=== PATIENT | female | born 1945 | race Caucasian/White ===

== ENCOUNTER 2019-08-15 18:51 | Inpatient (IN) ==
[2019-08-15] MEDS ORDERED: Naloxone 0.4 MG/ML INJ IVP PRN (21:17)
[2019-08-15] MEDS ORDERED: *HR* Promethazine 25 MG/ML VIAL IVP PRN (21:17)
[2019-08-15 22:28] LABS: INR 3.2; Prothrombin Time 35.9 Seconds (9.4-12.1)
[2019-08-15] MEDS: Insulin LISPRO 300 UNITS/3 ML VIAL SQ SCH (22:33)
[2019-08-15 22:52] LABS: Magnesium 1.8 mg/dL (1.6-2.6); Phosphorous 2.6 mg/dL (2.7-4.5); Troponin I 0.05 ng/mL (< 0.04)
[2019-08-15 22:58] LABS: Thyroid Stimulating Hormone 6.911 mcIU/mL (0.340-5.600)
[2019-08-16] MEDS ORDERED: Furosemide 40 MG/4 ML VIAL IVP ONE (00:53)
[2019-08-16] MEDS ORDERED: *HR* Metoprolol 5 MG/5 ML VIAL IVP PRN (01:58)
[2019-08-16 02:40] LABS: Basophils # 0.1 K/mcL (0.0-0.2); Eosinophils # 0.1 K/mcL (0.0-0.6); Eosinophils % 1.4 %; Hematocrit 37.4 % (35.3-44.9); Hemoglobin 11.8 g/dL (11.5-15.4); Immature Granulocytes % 0.8 % (0-4); Lymphocytes # 0.5 K/mcL (0.6-4.6); Lymphocytes % 9.8 %; Mean Corpuscular HGB Conc 31.6 g/dL (31.6-35.5); Mean Corpuscular Hemoglobin 31.2 pg (28.0-33.3); Mean Corpuscular Volume 98.9 fL (83.0-100.0); Mean Platelet Volume 10.4 fL (9.4-12.4); Monocytes # 0.5 K/mcL (0.0-1.3); Neutrophils # 3.9 K/mcL (1.6-8.9); Platelet Count 222 K/mcL (140-400); Red Blood Count 3.78 M/mcL (3.82-4.97); Red Cell Distribution Width 16.5 % (11.5-14.5); White Blood Count 5.1 K/mcL (4.3-11.1)
[2019-08-16 03:03] LABS: Albumin 3.2 g/dL (3.5-5.7); Albumin/Globulin Ratio 1.1 (1.1-2.2); Bilirubin,Total 1.1 mg/dL (0.3-1.0); Calcium 8.8 mg/dL (8.6-10.3); Potassium 3.6 mEq/L (3.5-5.1); Potassium 3.8 mEq/L (3.5-5.1); Total Protein 6.2 g/dL (6.4-8.9)
[2019-08-16 03:18] LABS: Triiodothyronine (T3) Free 2.15 pg/mL (2.50-3.90)
[2019-08-16 05:03] LABS: INR 3.2; Prothrombin Time 35.9 Seconds (9.4-12.1)
[2019-08-16 08:18] LABS: Hepatitis B Surface Antibody 40.94 mIU/mL
[2019-08-16 08:29] LABS: Hepatitis B Surface Antigen Nonreactive (Nonreactive)
[2019-08-16] MEDS: Insulin LISPRO 300 UNITS/3 ML VIAL SQ SCH ×3 (08:56→17:29)
[2019-08-16 16:49] LABS: Bilirubin,Urine Negative (Negative); Blood,Urine Moderate (Negative); Clarity,Urine Turbid (Clear); Color,Urine Yellow (Yellow); Glucose,Urine (UA) Normal (Normal); Ketones,Urine Negative (Negative); Leukocyte Esterase,Urine Large (Negative); Nitrite,Urine Negative (Negative); PH,Urine 7.5 pH Units (5.0-8.0); Protein,Urine >=300 mg/dL (Neg-Trace); Specific Gravity,Urine 1.016 (1.010-1.025); Urobilinogen,Urine Normal (Normal)
[2019-08-16 16:51] LABS: Bacteria,Urine Moderate per hpf (None-Few); Hyaline Casts,Urine None Seen per lpf (None-Few); RBC,Urine 15-30 per hpf (0-3); Squamous Epithelial Cell,Urine Many per lpf (None-Few); WBC,Urine TNTC per hpf (0-3)
[2019-08-16] MEDS ORDERED: *HR* Warfarin 2 MG TABLET PO ONE (18:00)
[2019-08-16] MEDS ORDERED: Warfarin perPT PO PRN (18:00)
[2019-08-16] MEDS ORDERED: Ranolazine 500 MG TAB.ER.12H PO SCH (19:15)
[2019-08-16] MEDS ORDERED: tiZANidine 4 MG TABLET PO SCH (21:00)
[2019-08-16] MEDS: Ranolazine 500 MG TAB.ER.12H PO SCH (21:14)
[2019-08-16] MEDS: Insulin DETEMIR 100 UNIT/ML X5UNITS SQ SCH (21:19)
[2019-08-16] MEDS: Acetaminophen 325 MG TABLET PO PRN (21:22)
[2019-08-16] MEDS: TADALAFIL 20 MG PO SCH (21:22)
[2019-08-17 05:19] LABS: Hematocrit 36.3 % (35.3-44.9); Hemoglobin 11.6 g/dL (11.5-15.4); Mean Corpuscular Hemoglobin 31.7 pg (28.0-33.3); Mean Corpuscular Volume 99.2 fL (83.0-100.0); Mean Platelet Volume 10.1 fL (9.4-12.4); Platelet Count 185 K/mcL (140-400); Red Blood Count 3.66 M/mcL (3.82-4.97); Red Cell Distribution Width 16.4 % (11.5-14.5); White Blood Count 4.4 K/mcL (4.3-11.1)
[2019-08-17 05:25] LABS: INR 1.9; Prothrombin Time 21.7 Seconds (9.4-12.1)
[2019-08-17 05:42] LABS: Calcium 8.1 mg/dL (8.6-10.3); Potassium 3.7 mEq/L (3.5-5.1)
[2019-08-17] MEDS ORDERED: 0.9 % Sodium Chloride 250 ML IVC PRN (07:28)
[2019-08-17] MEDS ORDERED: 0.9 % Sodium Chloride 1,000 ML PRIME SCH (07:30)
[2019-08-17] MEDS: Furosemide 40 MG TABLET PO SCH ×2 (07:52→16:49)
[2019-08-17] MEDS: *HR* Amiodarone 200 MG TABLET PO SCH (07:52)
[2019-08-17] MEDS: Insulin LISPRO 300 UNITS/3 ML VIAL SQ SCH ×3 (07:52→16:49)
[2019-08-17] MEDS: Fluticasone Propionate Nasal 50 MCG/SPRAY BOTTLE NS SCH (07:53)
[2019-08-17] MEDS: TADALAFIL 20 MG PO SCH ×2 (07:53→20:58)
[2019-08-17] MEDS: Ranolazine 500 MG TAB.ER.12H PO SCH ×2 (07:54→21:01)
[2019-08-17] MEDS: Acetaminophen 325 MG TABLET PO PRN ×2 (07:57→21:03)
[2019-08-17] MEDS: Metoprolol XL (24 HR) Succ 25 MG TAB.ER.24H PO SCH (13:31)
[2019-08-17] MEDS ORDERED: *HR* Warfarin 4 MG TABLET PO ONE (18:00)
[2019-08-17] MEDS: Insulin DETEMIR 100 UNIT/ML X5UNITS SQ SCH (21:01)
[2019-08-18 02:36] LABS: Hematocrit 37.8 % (35.3-44.9); Mean Corpuscular HGB Conc 31.7 g/dL (31.6-35.5); Mean Corpuscular Hemoglobin 31.7 pg (28.0-33.3); Mean Corpuscular Volume 99.7 fL (83.0-100.0); Mean Platelet Volume 10.2 fL (9.4-12.4); Platelet Count 194 K/mcL (140-400); Red Blood Count 3.79 M/mcL (3.82-4.97); Red Cell Distribution Width 16.3 % (11.5-14.5); White Blood Count 5.3 K/mcL (4.3-11.1)
[2019-08-18 02:38] LABS: INR 1.8; Prothrombin Time 20.8 Seconds (9.4-12.1)
[2019-08-18 02:57] LABS: Calcium 8.3 mg/dL (8.6-10.3); Potassium 3.8 mEq/L (3.5-5.1)
[2019-08-18] MEDS: Levothyroxine 25 MCG TABLET PO SCH (05:33)
[2019-08-18] MEDS: Insulin LISPRO 300 UNITS/3 ML VIAL SQ SCH ×3 (07:34→15:49)
[2019-08-18] MEDS: Metoprolol XL (24 HR) Succ 25 MG TAB.ER.24H PO SCH (08:39)
[2019-08-18] MEDS: *HR* Amiodarone 200 MG TABLET PO SCH (08:39)
[2019-08-18] MEDS: Furosemide 40 MG TABLET PO SCH ×2 (08:40→17:55)
[2019-08-18] MEDS: TADALAFIL 20 MG PO SCH ×2 (08:40→20:38)
[2019-08-18] MEDS: Ranolazine 500 MG TAB.ER.12H PO SCH ×2 (08:42→20:37)
[2019-08-18] MEDS: Acetaminophen 325 MG TABLET PO PRN ×2 (08:46→20:42)
[2019-08-18] MEDS: Fluticasone Propionate Nasal 50 MCG/SPRAY BOTTLE NS SCH (11:57)
[2019-08-18] MEDS ORDERED: *HR* Warfarin 4 MG TABLET PO ONE (18:00)
[2019-08-18] MEDS: Insulin DETEMIR 100 UNIT/ML X5UNITS SQ SCH (20:38)
[2019-08-19 02:45] LABS: Hematocrit 38.5 % (35.3-44.9); Hemoglobin 12.2 g/dL (11.5-15.4); Mean Corpuscular HGB Conc 31.7 g/dL (31.6-35.5); Mean Corpuscular Hemoglobin 31.3 pg (28.0-33.3); Mean Corpuscular Volume 98.7 fL (83.0-100.0); Mean Platelet Volume 10.3 fL (9.4-12.4); Platelet Count 204 K/mcL (140-400); Red Cell Distribution Width 16.3 % (11.5-14.5); White Blood Count 6.3 K/mcL (4.3-11.1)
[2019-08-19 02:58] LABS: Calcium 8.3 mg/dL (8.6-10.3); Potassium 4.6 mEq/L (3.5-5.1)
[2019-08-19] MEDS: Levothyroxine 25 MCG TABLET PO SCH (05:26)
[2019-08-19] MEDS ORDERED: 0.9 % Sodium Chloride 250 ML IVC PRN (07:41)
[2019-08-19] MEDS: Insulin LISPRO 300 UNITS/3 ML VIAL SQ SCH ×2 (07:44→12:49)
[2019-08-19 10:19] LABS: Prothrombin Time 22.8 Seconds (9.4-12.1)
[2019-08-19] MEDS: TADALAFIL 20 MG PO SCH (12:52)
[2019-08-19] MEDS: Metoprolol XL (24 HR) Succ 25 MG TAB.ER.24H PO SCH (12:53)
[2019-08-19] MEDS: *HR* Amiodarone 200 MG TABLET PO SCH (12:53)
[2019-08-19] MEDS: Ranolazine 500 MG TAB.ER.12H PO SCH (12:53)
[2019-08-19] MEDS: Furosemide 40 MG TABLET PO SCH ×2 (12:55→16:45)
[2019-08-19] MEDS: Fluticasone Propionate Nasal 50 MCG/SPRAY BOTTLE NS SCH (12:56)
[2019-08-19 15:15] VITALS: BP 137/64
[2019-08-19] MEDS ORDERED: *HR* Warfarin 4 MG TABLET PO ONE (18:00)
[2019-08-21] MEDS ORDERED: Ergocalciferol (VIT D2) 50,000 UNIT (1.25MG) CAP PO SCH (09:00)
== END 2019-08-19 17:13 | DRG 280 ==
LOC: 2ANU → SUATTDRO 08-16 11:04
PROVIDERS: ADMIT Family Medicine; ATTEND Student in an Organized Health Care Education/Training Program